=== PATIENT | female | born 1995 | race Caucasian/White ===

== ENCOUNTER → 2020-03-21 | Outpatient (CLI) | payer OTHER | LOC: COL.RAD 11:57 | DX: G93.2 Benign intracranial hypertension (principal) | CPT/HCPCS: A9585 ==

== ENCOUNTER 2020-05-09 07:57 | Outpatient (CLI) | payer OTHER ==
[2020-05-09] VITALS (8 sets, daily range): BP systolic 116–153; BP diastolic 68–91; PULSE 81–99
[~2020-05-09] VITALS: Ht 149.9 cm; Wt 88.1 kg
[2020-05-09] MEDS ORDERED: XANAX 0.5MG0.5 MG PO (08:14)
[2020-05-09] MEDS ORDERED: MAG-OX 400400 MG/TAB PO (08:15)
[2020-05-09] MEDS ORDERED: DIAMOX SEQUELS500 M1 PO (08:16)
[2020-05-09 09:24] LABS: GLUCOSE,CSF 55 mg/dL (40-70); TOTAL PROTEIN,CSF 28 mg/dL (15-45)
[2020-05-09 10:11] LABS: CSF APPEARANCE CLEAR; CSF COLOR COLORLESS; CSF MONONUCLEAR 100 % (70-100); CSF POLYMORPHONUCLEAR 0 % (0-6); CSF RBC < 1 /mm3 (0-0)
--- NOTE | 2020-05-09 11:13 | NUR ---
Pt continues to deny headache, nausea or other concerns. Has tolerated sips of water without issue. DC instructions reviewed and pt expresses understanding. Gait is steady. She is assisted out to 's car by wheelchair with belongings.
== END 2020-05-09 11:15 | disposition home or self-care (01) ==
LOC: COL.RAD 07:57
PROVIDERS: Nurse Practitioner
DX: G93.2 Benign intracranial hypertension (principal)